=== PATIENT | female | born 1935 | race Caucasian/White ===

== ENCOUNTER 2020-07-29 12:54 | Outpatient (CLI) | payer MEDICARE, MEDICAID ==
[~2020-07-29 12:54] MED LIST: ACET325T55 PO; BARIUM SULFATE 340 ML SUSP.RECON***PROCEDURE AREA ONLY**DONT ENTER PO ONE; BISA-155 PO; BUSP10TA10 PO; CALC-1215 PO; CEFT1VIA14 IM; CLON-528 PO; DOCU250C96 PF; DONE5TAB7 PO; DULR RC; HALO50AM2 IMVAC; HYDR-4383 PO; LEVO500T2 PO; MAGN24002 PO; MEGE400O PO; MELO-102 PO; MULT-1085 PO; NA P133E4 RC; POLY119P2 PO; VORT5TAB PO; [UNRECOGNIZED DRUG - CODE] PO
== END 2020-07-29 23:59 | disposition home or self-care (01) ==
LOC: RAD 12:54
PROVIDERS: ATTEND Internal Medicine
DX: R13.12 Dysphagia, oropharyngeal phase (principal)
CPT/HCPCS: 74230

== ENCOUNTER 2020-10-03 05:42 | Emergency (ER) | payer MEDICARE, MEDICAID ==
[~2020-10-03] VITALS: Ht 154.9 cm; Wt 60.0 kg
[~2020-10-03 05:42] MED LIST changes: -BARIUM SULFATE 340 ML SUSP.RECON***PROCEDURE AREA ONLY**DONT ENTER PO ONE
[2020-10-03] MEDS ORDERED: ONDA4TAB6 PO (05:53)
[2020-10-03] MEDS ORDERED: HYDR-3964 PO (05:53)
[2020-10-03 05:58] VITALS: BP 104/44
--- NOTE | 2020-10-03 08:06 | NUR ---
TRANSPORT HERE TO TAKE PATIENT BACK TO [place]. REPORT GIVEN TO [employer] HELPER. DEPARTED PER SB, IN STABLE CONDITION.
== END 2020-10-03 08:12 | disposition home or self-care (01) ==
LOC: ER 05:42
DX: S62.326A Displaced fracture of shaft of fifth metacarpal bone, right hand, initial encounter for closed fracture (principal); M79.89 Other specified soft tissue disorders; M79.642 Pain in left hand; Z88.8 Allergy status to other drugs, medicaments and biological substances; Z79.2 Long term (current) use of antibiotics; Z79.899 Other long term (current) drug therapy; X58.XXXA Exposure to other specified factors, initial encounter; Y93.89 Activity, other specified; Y92.89 Other specified places as the place of occurrence of the external cause; Y99.8 Other external cause status
CPT/HCPCS: 29125; 99284

== ENCOUNTER 2024-03-29 14:21 | Outpatient (CLI) | payer MEDICARE, MEDICAID ==
[~2024-03-29 14:21] MED LIST changes: -CLON-528 PO; +CLON0.5T2 PO; +DOCU-395 PF; -DOCU250C96 PF; +ONDA4TAB6 PO
== END 2024-03-29 23:59 | disposition home or self-care (01) ==
LOC: RAD 14:21
PROVIDERS: ATTEND Internal Medicine
DX: R13.12 Dysphagia, oropharyngeal phase (principal); F25.9 Schizoaffective disorder, unspecified; F03.C18 Unspecified dementia, severe, with other behavioral disturbance; Z79.899 Other long term (current) drug therapy
CPT/HCPCS: 74230